=== PATIENT | female | born 1975 | race American Indian/Alaskan Native ===

== ENCOUNTER 2019-02-20 20:52 | Emergency (ER) | payer BC ==
[2019-02-20 21:06] VITALS: BP 120/88; PULSE 116; RESP 20; TEMP 98.5; O2SAT 99
[2019-02-20] MEDS ORDERED: Tmp-Smz 800 mg-160 mg DS Tab PO STA (21:46)
[2019-02-20] MEDS ORDERED: Tmp-Smz 800 mg-160 mg DS Tab ONE (21:53)
--- NOTE | 2019-02-20 21:56 | C.PDOC ---
History Of Present Illness 44 year old female presents to the ED c/o lump to her left buttock for the past 5 days. Patient states she noticed a small pimple to the area that worsened. Patient denies fever, chills, rash, drainage, injury, fall, trauma. Time Seen by Provider: 02/20/19 21:11 Chief Complaint (Nursing): Abnormal Skin Integrity History Per: Patient History/Exam Limitations: no limitations Onset/Duration Of Symptoms: Days (5) Location Of Injury: Left: Buttock Quality Of Symptoms: Painful, Swollen Recent travel outside of the [place]: No Additional History Per: Patient Past Medical History Reviewed: Historical Data, Nursing Documentation, Vital Signs Vital Signs: Last Vital Signs Temp 98.5 F 02/20/19 21:02 Pulse 116 H 02/20/19 21:02 Resp 20 02/20/19 21:02 BP 120/88 02/20/19 21:02 Pulse Ox 99 02/20/19 21:02 - Medical History PMH: No Chronic Diseases Surgical History: No Surg Hx Family History: States: Unknown Family Hx - Social History Hx Alcohol Use: No Hx Substance Use: No - Immunization History Hx Tetanus Toxoid Vaccination: No Hx Influenza Vaccination: No Hx Pneumococcal Vaccination: No Review Of Systems Constitutional: Negative for: Fever, Chills Gastrointestinal: Negative for: Nausea, Vomiting, Abdominal Pain Skin: Positive for: Other (abscess). Negative for: Rash Neurological: Negative for: Weakness, Numbness Physical Exam - Physical Exam Appears: Non-toxic, No Acute Distress Skin: Normal Color, Warm, Dry, Other (2x4 cm left buttock area of induration, swelling, erythema. No warmth, perianal involvement, fluctuation.) Head: Atraumatic, Normacephalic Eye(s): bilateral: Normal Inspection Oral Mucosa: Moist Neck: Normal ROM, Supple Extremity: Normal ROM, No Tenderness, No Swelling Neurological/Psych: Oriented x3, Normal Speech, Normal Cognition Gait: Steady ED Course And Treatment O2 Sat by Pulse Oximetry: 99 (ON RA) Pulse Ox Interpretation: Normal Progress Note: Plan: - keflex 500 mg PO. - bactrim 1 tab PO. - Motrin 800 mg PO. Patient was explained that no I&D was indicated at this time as area still very much indurated. Patient was given antibiotics to complete at home and advised to use warm compresses and seat baths. Patient advised to return in 2 days for wound check. Disposition Counseled Patient/Family Regarding: Diagnosis, Need For Followup - Disposition Disposition: HOME/ ROUTINE Disposition Time: 21:51 Condition: STABLE Additional Instructions: Please follow up with PMD Take medications as directed Return to ER if worse Prescriptions: Cephalexin [Keflex] 500 mg PO QID #28 capsule Ibuprofen [Motrin] 600 mg PO Q6H #20 tab Sulfamethoxazole/Trimethoprim [Bactrim DS 800 mg-160 mg] 1 tab PO BID #14 tab Instructions: Boil (DC) Forms: [email or web address] (Mexican) - Clinical Impression Clinical Impression: Left buttock abscess - PA / [employer] / Resident Statement MD/DO has reviewed & agrees with the documentation as recorded. - Scribe Statement The provider has reviewed the documentation as recorded by the Scribe Moshe Vasquez All medical record entries made by the Scriblilia were at my direction and personally dictated by me. I have reviewed the chart and agree that the record accurately reflects my personal performance of the history, physical exam, medical decision making, and the department course for this patient. I have also personally directed, reviewed, and agree with the discharge instructions and disposition.
== END 2019-02-20 22:18 | disposition home or self-care (01) ==
LOC: C.ER 20:52
DX: L02.31 Cutaneous abscess of buttock (principal)